=== PATIENT | female | born 2000 | race Two or more races ===

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

== ENCOUNTER 2019-03-11 00:59 | Emergency (ER) | payer MEDICAID ==
[2019-03-11 05:20] LABS: ABSOLUTE EOSINOPHILS # (AUTO) 0.1 10^3/uL (0.0-0.6); ABSOLUTE LYMPHOCYTES (AUTO) 2.6 10^3/uL (0.5-4.7); ABSOLUTE MONOCYTES (AUTO) 0.6 10^3/uL (0.1-1.4); ABSOLUTE NEUT (AUTO) 3.9 10^3/uL (1.7-8.2); BASOPHILS % (AUTO) 0.4 % (0-2); HEMATOCRIT 31.5 % (36.0-47.0); HEMOGLOBIN 10.4 g/dL (12.0-15.5); LYMPHOCYTES % (AUTO) 35.9 % (13-45); MEAN CORPUSCULAR HEMOGLOBIN 24.8 pg (27.0-33.4); MEAN CORPUSCULAR HGB CONC 33.1 g/dL (32.0-36.0); MEAN CORPUSCULAR VOLUME 75 fl (80-97); PLATELET COUNT 167 10^3/uL (150-450); RED BLOOD COUNT 4.21 10^6/uL (3.72-5.28); RED CELL DISTRIBUTION WIDTH 21.4 % (11.5-14.0); SEGMENTED NEUTROPHILS % (AUTO) 54.7 % (42-78); TOTAL CELLS COUNTED % (AUTO) 100 %; WHITE BLOOD COUNT 7.2 10^3/uL (4.0-10.5)
[2019-03-11 05:32] LABS: APPEARANCE,URINE CLEAR; BILIRUBIN,URINE NEGATIVE (NEGATIVE); COLOR,URINE YELLOW; GLUCOSE, URINE NEGATIVE (NEGATIVE); KETONES,URINE NEGATIVE (NEGATIVE); LEUKOCYTE ESTERASE,URINE NEGATIVE (NEGATIVE); NITRITE,URINE NEGATIVE (NEGATIVE); PROTEIN,URINE NEGATIVE (NEGATIVE)
[2019-03-11 05:45] LABS: ALANINE AMINOTRANSFERASE 22 U/L (5-35); ALBUMIN 3.8 g/dL (3.7-5.6); ALKALINE PHOSPHATASE 72 U/L (50-135); ANION GAP 8 (5-19); ASPARTATE AMINO TRANSFERASE 22 U/L (5-30); BILIRUBIN,DIRECT 0.2 mg/dL (0.0-0.4); BILIRUBIN,TOTAL 0.3 mg/dL (0.2-1.3); BLOOD UREA NITROGEN 13 mg/dL (7-20); CALCIUM 8.9 mg/dL (8.4-10.2); CARBON DIOXIDE 24 mmol/L (22-30); CHLORIDE 105 mmol/L (98-107); LIPASE 183.5 U/L (23-300); SODIUM 136.9 mmol/L (137-145)
[2019-03-11 06:05] LABS: GLUCOSE 68 mg/dL (75-110)
--- NOTE | 2019-03-11 06:16 | ER Document Report ---
ED GI/ - General Chief Complaint: OB Problem (<20wks) Stated Complaint: BACK AND STOMACH PAIN Time Seen by Provider: 03/11/19 03:31 Primary Care Provider: [facility] [Provider Group] - Follow up as needed Mode of Arrival: Ambulatory Information source: Patient Notes: Patient is a 18-year-old female who is a G1, P0 presenting to the emergency department at 12 weeks gestation complaining of lower abdominal cramping over the last 3 days. She denies any vaginal bleeding, denies any abnormal vaginal discharge and denies any nausea, vomiting, diarrhea or fevers. Patient reports this cramping comes and goes. TRAVEL OUTSIDE OF THE [place] IN LAST 30 DAYS: No - HPI heart tones (bpm): 155 - Related Data Allergies/Adverse Reactions: No Known Allergies Allergy (Verified 12/13/18 13:06) Past Medical History - General Information source: Patient - Social History Smoking Status: Never Smoker Chew tobacco use (# tins/day): No Frequency of alcohol use: None Drug Abuse: None Family History: Reviewed & Not Pertinent Patient has suicidal ideation: No Patient has homicidal ideation: No - Medical History Medical History: Negative Renal/ Medical History: Denies: Hx Peritoneal Dialysis Past Surgical History: Reports: Hx Gastric Bypass Surgery - Immunizations Immunizations up to date: Yes Hx Diphtheria, Pertussis, Tetanus Vaccination: Yes Review of Systems - Review of Systems Constitutional: No symptoms reported EENT: No symptoms reported Cardiovascular: No symptoms reported Respiratory: No symptoms reported Gastrointestinal: Abdominal pain - Cramping Genitourinary: No symptoms reported Female Genitourinary: No symptoms reported Musculoskeletal: No symptoms reported Skin: No symptoms reported Hematologic/Lymphatic: No symptoms reported Neurological/Psychological: No symptoms reported Physical Exam - Vital signs Vitals: Temp Pulse Resp BP Pulse Ox 97.8 F 70 16 121/57 L 100 03/11/19 01:06 03/11/19 01:06 03/11/19 01:06 03/11/19 01:06 03/11/19 01:06 - Notes Notes: PHYSICAL EXAMINATION: GENERAL: Well-appearing, well-nourished and in no acute distress. HEAD: Atraumatic, normocephalic. EYES: Pupils equal round and reactive to light, extraocular movements intact, conjunctiva are normal. ENT: Nares patent, oropharynx clear without exudates. Moist mucous membranes. NECK: Normal range of motion, supple without lymphadenopathy LUNGS: Breath sounds clear to auscultation bilaterally and equal. No wheezes rales or rhonchi. HEART: Regular rate and rhythm without murmurs ABDOMEN: Soft, nontender, nondistended abdomen. No guarding, no rebound. No masses appreciated. Female : deferred Musculoskeletal: Normal range of motion, no pitting or edema. No cyanosis. NEUROLOGICAL: Cranial nerves grossly intact. Normal speech, normal gait. Normal sensory, motor exams PSYCH: Normal mood, normal affect. SKIN: Warm, Dry, normal turgor, no rashes or lesions noted. Course - Re-evaluation Re-evalutation: Labs as recorded are unremarkable. Patient already has a history of having an ultrasound that shows an intrauterine . heart tones are within acceptable range. Patient will be discharged home with likely round ligament pain. Patient understands all test results and understands ED return precautions. - Vital Signs Vital signs: Temp Pulse Resp BP Pulse Ox 97.7 F 67 16 113/42 L 100 03/11/19 06:44 03/11/19 06:44 03/11/19 06:44 03/11/19 06:44 03/11/19 06:44 - Laboratory Result Diagrams: 03/11/19 04:45 03/11/19 04:45 Laboratory results interpreted by me: 03/11/19 03/11/19 03/11/19 04:30 04:45 04:45 Hgb 10.4 L Hct 31.5 L MCV 75 L MCH 24.8 L RDW 21.4 H Sodium 136.9 L Creatinine 0.38 L Glucose 68 L Beta HCG, Quant 38182.00 H Urine Urobilinogen 4.0 H Urine Ascorbic Acid 40 H Discharge - Discharge Clinical Impression: Pain of round ligament during Condition: Stable Disposition: HOME, SELF-CARE Additional Instructions: Your lab work-up today was unremarkable. There is no evidence of any urinary tract infection. heart tones were obtained and were normal. The pain you are experiencing intermittently over the last few days is most likely being caused by a round ligament pain which is a part of . It is your ligaments stretching to allow for the growing abdomen. Please drink plenty of fluids, rest, take Tylenol for any pain. Follow-up with your [facility]NAGER. Return to the emergency department with any new or worsening symptoms to include persistent abdominal pain, persistent vomiting, fever or any other symptom that is concerning to you. Referrals: [facility] [Provider Group] - Follow up as needed
[2019-03-11 07:14] VITALS: BP 113/42
== END 2019-03-11 07:10 | disposition home or self-care (01) ==
LOC: ER 00:59
DX: O26.891 Other specified pregnancy related conditions, first trimester (principal); R10.2 Pelvic and perineal pain; O99.841 Bariatric surgery status complicating pregnancy, first trimester; Z3A.12 12 weeks gestation of pregnancy
CPT/HCPCS: 36415; 80053; 81001; 83690; 84702; 85025; 99284

== ENCOUNTER 2019-05-13 17:06 | Outpatient (CLI) | payer MEDICAID ==
[2019-05-13 18:09] LABS: APPEARANCE,URINE CLEAR; BILIRUBIN,URINE NEGATIVE (NEGATIVE); COLOR,URINE YELLOW; GLUCOSE, URINE NEGATIVE (NEGATIVE); KETONES,URINE NEGATIVE (NEGATIVE); LEUKOCYTE ESTERASE,URINE TRACE (NEGATIVE); NITRITE,URINE NEGATIVE (NEGATIVE); PROTEIN,URINE 30 mg/dL (NEGATIVE); URINE SPECIFIC GRAVITY 1.029
[2019-05-13] MEDS ORDERED: HYDROXYZINE PAMOATE 50 MG CAPSULE PO ONE (18:10)
[2019-05-13] MEDS ORDERED: HYDROXYZINE PAMOATE 50 MG CAPSULE ONE (18:13)
[2019-05-13 18:32] LABS: URINE AMPHETAMINES SCREEN NEGATIVE; URINE BARBITURATES SCREEN NEGATIVE; URINE BENZODIAZEPINES SCREEN NEGATIVE; URINE COCAINE SCREEN NEGATIVE; URINE MARIJUANA (THC) SCREEN NEGATIVE; URINE METHADONE SCREEN NEGATIVE; URINE PHENCYCLIDINE SCREEN NEGATIVE
== END 2019-05-13 18:48 | disposition home or self-care (01) ==
LOC: LC 17:06
PROVIDERS: ATTEND Obstetrics & Gynecology
PROC: 4A1HXCZ Monitoring of Products of Conception, Cardiac Rate, External Approach (ICD-10-PCS; principal; 2019-05-13)
DX: O26.892 Other specified pregnancy related conditions, second trimester (principal); E86.0 Dehydration; Z3A.21 21 weeks gestation of pregnancy
CPT/HCPCS: 81001; 80307; 59899; J3490

== ENCOUNTER 2019-06-18 07:41 | Emergency (ER) | payer MEDICAID ==
[2019-06-18 08:19] LABS: APPEARANCE,URINE SLIGHTLY-CLOUDY; BILIRUBIN,URINE NEGATIVE (NEGATIVE); COLOR,URINE YELLOW; GLUCOSE, URINE NEGATIVE (NEGATIVE); KETONES,URINE NEGATIVE (NEGATIVE); LEUKOCYTE ESTERASE,URINE NEGATIVE (NEGATIVE); NITRITE,URINE NEGATIVE (NEGATIVE); PROTEIN,URINE NEGATIVE (NEGATIVE)
--- NOTE | 2019-06-18 08:55 | ER Document Report ---
HPI - HPI Time Seen by Provider: 06/18/19 08:12 Pain Level: 3 Notes: Patient is an otherwise healthy 18-year-old female G1, P0 at 26 weeks current gestation presenting with diarrhea that started last night. Patient reports she has had 4 episodes of diarrhea. She states that her spouse has similar symptoms. She reports mild nausea but denies any vomiting, vaginal bleeding or abnormal vaginal discharge. She does report intermittent abdominal cramping. She denies any fever or chills. - CONSTITUTIONAL Constitutional: DENIES: Fever, Chills - GASTROINTESTINAL Gastrointestinal: REPORTS: Abdominal Pain - lower abdo. DENIES: Black / Bloody Stools - URINARY Urinary: DENIES: Dysuria, Urgency, Frequency - REPRODUCTIVE Reproductive: REPORTS: : Past Medical History - General Information source: Patient - Social History Smoking Status: Never Smoker Lives with: Spouse/Significant other Family History: Reviewed & Not Pertinent Patient has suicidal ideation: No Patient has homicidal ideation: No - Medical History Medical History: Negative Renal/ Medical History: Denies: Hx Peritoneal Dialysis Past Surgical History: Reports: Hx Abdominal Surgery - gastric bypass, Hx Gastric Bypass Surgery - Immunizations Immunizations up to date: Yes Hx Diphtheria, Pertussis, Tetanus Vaccination: Yes Vertical Provider Document - CONSTITUTIONAL Notes: PHYSICAL EXAMINATION: GENERAL: Well-appearing, well-nourished and in no acute distress. HEAD: Atraumatic, normocephalic. EYES: Pupils equal round and reactive to light, extraocular movements intact, conjunctiva are normal. ENT: Nares patent, oropharynx clear without exudates. Moist mucous membranes. NECK: Normal range of motion, supple without lymphadenopathy LUNGS: Breath sounds clear to auscultation bilaterally and equal. No wheezes rales or rhonchi. HEART: Regular rate and rhythm without murmurs ABDOMEN: Soft, nontender, nondistended, gravid abdomen. No guarding, no rebound. No masses appreciated. Female : No CVA tenderness. Musculoskeletal: Normal range of motion, no pitting or edema. No cyanosis. NEUROLOGICAL: Cranial nerves grossly intact. Normal speech, normal gait. Normal sensory, motor exams PSYCH: Normal mood, normal affect. SKIN: Warm, Dry, normal turgor, no rashes or lesions noted. - INFECTION CONTROL TRAVEL OUTSIDE OF THE [place] IN LAST 30 DAYS: No Course - Re-evaluation Re-evalutation: Urinalysis is unremarkable. Likely viral gastroenteritis as patient spouse has had similar symptoms. Patient appears well, nontoxic, vital signs are within normal limits. Patient will follow-up with C[facility] TRANSPORT NURSE. Encourage patient to push fluids. The patient's emergency department workup and current diagnosis were explained to the patient and or family. Follow-up instructions were provided. Medications if prescribed were discussed. Instructions for when to return to the emergency department including specific worrisome symptoms were discussed with the patient and/or family. - Vital Signs Vital signs: Temp Pulse Resp BP Pulse Ox 98.4 F 66 16 132/57 H 99 06/18/19 07:50 06/18/19 07:50 06/18/19 07:50 06/18/19 07:50 06/18/19 07:50 - Laboratory Laboratory results interpreted by me: 06/18/19 07:52 Urine Urobilinogen 2.0 H Urine HCG, Qual POSITIVE H Discharge - Discharge Clinical Impression: Nausea Diarrhea Qualifiers: Diarrhea type: unspecified type Qualified Code(s): R19.7 - Diarrhea, unspecified Condition: Stable Disposition: HOME, SELF-CARE Additional Instructions: The urinalysis today was unremarkable. Unfortunately there is no safe medication for me to recommend in for your diarrhea. Please allow this to run its course. Please stay hydrated and drink plenty of fluids. Please return to the emergency department with any new or worsening symptoms. Keep the follow-up appointment that you have scheduled with [facility]. Forms: Return to Work Referrals: DAVID NEWTON MD [Primary Care Provider] - Follow up as needed
[2019-06-18 09:17] VITALS: BP 113/58
== END 2019-06-18 09:19 | disposition home or self-care (01) ==
LOC: ER 07:41
DX: O26.892 Other specified pregnancy related conditions, second trimester (principal); R19.7 Diarrhea, unspecified; R10.30 Lower abdominal pain, unspecified; R11.0 Nausea; O99.842 Bariatric surgery status complicating pregnancy, second trimester; Z3A.26 26 weeks gestation of pregnancy
CPT/HCPCS: 81001; 81025; 87086; 99284

== ENCOUNTER 2019-07-11 13:05 | Outpatient (CLI) | payer MEDICAID ==
[2019-07-11 13:34] LABS: APPEARANCE,URINE SLIGHTLY-CLOUDY; BILIRUBIN,URINE NEGATIVE (NEGATIVE); GLUCOSE, URINE NEGATIVE (NEGATIVE); KETONES,URINE NEGATIVE (NEGATIVE); LEUKOCYTE ESTERASE,URINE SMALL (NEGATIVE); NITRITE,URINE NEGATIVE (NEGATIVE); PROTEIN,URINE NEGATIVE (NEGATIVE); URINE SPECIFIC GRAVITY 1.028
[2019-07-11 13:35] LABS: COLOR,URINE DARK YELLOW
[2019-07-11 13:58] LABS: URINE AMPHETAMINES SCREEN NEGATIVE; URINE BARBITURATES SCREEN NEGATIVE; URINE BENZODIAZEPINES SCREEN NEGATIVE; URINE COCAINE SCREEN NEGATIVE; URINE METHADONE SCREEN NEGATIVE; URINE PHENCYCLIDINE SCREEN NEGATIVE
[2019-07-11 14:02] LABS: URINE MARIJUANA (THC) SCREEN UNCONFIRMED POSITIVE
== END 2019-07-11 14:15 | disposition home or self-care (01) ==
LOC: LC 13:05
PROVIDERS: ATTEND Obstetrics & Gynecology
PROC: 4A1HXCZ Monitoring of Products of Conception, Cardiac Rate, External Approach (ICD-10-PCS; principal; 2019-07-11)
DX: O47.03 False labor before 37 completed weeks of gestation, third trimester (principal); O36.8130 Decreased fetal movements, third trimester, not applicable or unspecified; Z3A.29 29 weeks gestation of pregnancy
CPT/HCPCS: 59899; 94760; 81001; 80307; G0480 ×2; 80349

== ENCOUNTER 2019-08-13 04:57 | Emergency (ER) | payer MEDICAID ==
[2019-08-13 08:25] LABS: A TYPE INFLUENZA AG NEGATIVE (NEGATIVE); B INFLUENZA AG NEGATIVE (NEGATIVE)
[2019-08-13 09:20] VITALS: BP 93/49
--- NOTE | 2019-08-13 13:50 | ER Document Report ---
Entered by SHIRLENE ROSALES SCRIBE 08/13/19 0846 Acting as scribe for:WALLACE DRIVER DO ED General - General Chief Complaint: Cold Symptoms Stated Complaint: COLD SYMPTOMS Time Seen by Provider: 08/13/19 07:35 Mode of Arrival: Ambulatory Information source: Patient Notes: This 19-year old 34-week female patient presents to the emergency department today with complaints of shortness of breath with an associated cough and wheezing for the last few days. Patient states that she has noticed that the shortness of breath and cough only really become bad at night when she is laying down to sleep. Patient denies fevers, chest pain, abdominal pain, or vaginal bleeding. TRAVEL OUTSIDE OF THE [place] IN LAST 30 DAYS: No - Related Data Allergies/Adverse Reactions: No Known Allergies Allergy (Verified 07/11/19 13:13) Home Medications: . iron Past Medical History - General Information source: Patient - Social History Smoking Status: Never Smoker Cigarette use (# per day): No Chew tobacco use (# tins/day): No Frequency of alcohol use: None Drug Abuse: None Lives with: Family Family History: Reviewed & Not Pertinent Patient has suicidal ideation: No Patient has homicidal ideation: No Past Surgical History: Reports: Hx Abdominal Surgery - gastric bypass, Hx Gastric Bypass Surgery - Immunizations Immunizations up to date: Yes Hx Diphtheria, Pertussis, Tetanus Vaccination: Yes Review of Systems - Review of Systems Constitutional: denies: Fever EENT: No symptoms reported Cardiovascular: No symptoms reported Respiratory: See HPI, Cough, Short of breath, Wheezing Gastrointestinal: No symptoms reported Genitourinary: No symptoms reported Female Genitourinary: See HPI, - 3rd trimester Musculoskeletal: No symptoms reported Skin: No symptoms reported Hematologic/Lymphatic: No symptoms reported Neurological/Psychological: No symptoms reported -: Yes All other systems reviewed and negative Physical Exam - Vital signs Vitals: Temp Pulse Resp BP Pulse Ox 97.7 F 77 14 126/66 H 99 08/13/19 05:03 08/13/19 05:03 08/13/19 05:03 08/13/19 05:03 08/13/19 05:03 Interpretation: Normal - General General appearance: Appears well, Alert - HEENT Head: Normocephalic, Atraumatic Eyes: Normal Pupils: PERRL Nasal: Other - congestoin Mucous membranes: Moist Pharynx: Normal. No: Blood in hypopharynx, Erythema, Exudate Neck: Normal - Respiratory Respiratory status: No respiratory distress Chest status: Nontender Breath sounds: Normal Chest palpation: Normal - Cardiovascular Rhythm: Regular Heart sounds: Normal auscultation Murmur: No - Abdominal Inspection: Normal, Gravid female Distension: No distension Bowel sounds: Normal Tenderness: Nontender Organomegaly: No organomegaly - Back Back: Normal, Nontender - Extremities General upper extremity: Normal inspection, Nontender, Normal color, Normal ROM, Normal temperature General lower extremity: Normal inspection, Nontender, Normal color, Normal ROM, Normal temperature, Normal weight bearing. No: Amanda's sign - Neurological Neuro grossly intact: Yes Cognition: Normal Orientation: AAOx4 [place] Coma Scale Eye Opening: Spontaneous [place] Coma Scale Verbal: Oriented [place] Coma Scale Motor: Obeys Commands [place] Coma Scale Total: 15 Speech: Normal Motor strength normal: LUE, RUE, LLE, RLE Sensory: Normal - Psychological Associated symptoms: Normal affect, Normal mood - Skin Skin Temperature: Warm Skin Moisture: Dry Skin Color: Normal Course - Re-evaluation Re-evalutation: 08/13/19 Patient is a 19-year-old female who is and comes in with upper respiratory infection symptoms. Flu swab is negative and patient has not had a fever. No indication for Tamiflu at this time. Otherwise appears well. Has more coughing at night likely due to nasal congestion and postnasal drip. Instructed to take Benadryl and Tylenol as needed. heart tones within normal limits. No concerns about at this time stable for discharge. Return if any worsening or concerning symptoms. - Vital Signs Vital signs: Temp Pulse Resp BP Pulse Ox 98.5 F 65 18 93/49 L 97 08/13/19 09:15 08/13/19 09:15 08/13/19 09:15 08/13/19 09:15 08/13/19 09:15 Discharge - Discharge Clinical Impression: Upper respiratory infection Qualifiers: URI type: unspecified URI Qualified Code(s): J06.9 - Acute upper respiratory infection, unspecified Qualifiers: Weeks of gestation: 34 weeks Qualified Code(s): Z3A.34 - 34 weeks gestation of Condition: Stable Disposition: HOME, SELF-CARE Instructions: Upper Respiratory Illness ([facility]) Forms: Return to Work I personally performed the services described in the documentation, reviewed and edited the documentation which was dictated to the scribe in my presence, and it accurately records my words and actions.
== END 2019-08-13 09:19 | disposition home or self-care (01) ==
LOC: ER 04:57
DX: O99.513 Diseases of the respiratory system complicating pregnancy, third trimester (principal); J06.9 Acute upper respiratory infection, unspecified; O26.893 Other specified pregnancy related conditions, third trimester; R06.02 Shortness of breath; R05 Cough; R06.2 Wheezing; R09.81 Nasal congestion; R09.82 Postnasal drip; Z3A.34 34 weeks gestation of pregnancy; Z79.899 Other long term (current) drug therapy
CPT/HCPCS: 87804; 99283

== ENCOUNTER 2019-08-16 18:39 | Outpatient (CLI) | payer MEDICAID ==
[2019-08-16 20:51] LABS: APPEARANCE,URINE SLIGHTLY-CLOUDY; BILIRUBIN,URINE SMALL (NEGATIVE); COLOR,URINE AMBER; GLUCOSE, URINE NEGATIVE (NEGATIVE); KETONES,URINE NEGATIVE (NEGATIVE); LEUKOCYTE ESTERASE,URINE MODERATE (NEGATIVE); NITRITE,URINE NEGATIVE (NEGATIVE); PROTEIN,URINE 30 mg/dL (NEGATIVE); URINE SPECIFIC GRAVITY 1.038
--- NOTE | 2019-08-16 21:01 | Non Stress Test Report ---
Non Stress Test Datetime Report Generated by CPN: 08/16/2019 21:00 DEMOGRAPHIC EGA NST: 34.6 INDICATION Indication for Study (NST) Other: LC- abdominal cramping MONITORING Monitor Explained: Monitor Explained; Test Explained; Patient Verbalized Understanding Time on Monitor: 08/16/2019 19:09 NST INTERVENTIONS NST Interventions: PO Hydration; Reposition Patient Physician Notified NST: Dr. Younger BABY A: [id number] BABY A Movement : Present Contraction Frequency : x3 FHR Baseline : 120 Accelerations : 15X15 Decelerations : None Variability : Moderate 6-25bpm NST Review: Meets Criteria for Reactive NST NST Review and Verified By : JNienaveed,RN NST Results: Reactive NST REPORT Report Trigger: Send Report
[2019-08-16 21:05] LABS: URINE AMPHETAMINES SCREEN NEGATIVE; URINE BARBITURATES SCREEN NEGATIVE; URINE BENZODIAZEPINES SCREEN NEGATIVE; URINE COCAINE SCREEN NEGATIVE; URINE MARIJUANA (THC) SCREEN NEGATIVE; URINE METHADONE SCREEN NEGATIVE; URINE PHENCYCLIDINE SCREEN NEGATIVE
== END 2019-08-16 21:00 | disposition home or self-care (01) ==
LOC: LC 18:39
PROVIDERS: ATTEND Obstetrics & Gynecology
PROC: 4A1HXCZ Monitoring of Products of Conception, Cardiac Rate, External Approach (ICD-10-PCS; principal; 2019-08-16)
DX: O26.893 Other specified pregnancy related conditions, third trimester (principal); Z3A.34 34 weeks gestation of pregnancy
CPT/HCPCS: 59025; 80307; 81001

== ENCOUNTER 2019-08-17 00:45 | Inpatient (IN) | payer MEDICAID ==
[2019-08-17 01:31] LABS: APPEARANCE,URINE SLIGHTLY-CLOUDY; BILIRUBIN,URINE NEGATIVE (NEGATIVE); COLOR,URINE YELLOW; GLUCOSE, URINE NEGATIVE (NEGATIVE); KETONES,URINE NEGATIVE (NEGATIVE); LEUKOCYTE ESTERASE,URINE MODERATE (NEGATIVE); NITRITE,URINE NEGATIVE (NEGATIVE); PROTEIN,URINE 30 mg/dL (NEGATIVE); URINE SPECIFIC GRAVITY 1.018
[2019-08-17 01:48] LABS: URINE AMPHETAMINES SCREEN NEGATIVE; URINE BARBITURATES SCREEN NEGATIVE; URINE BENZODIAZEPINES SCREEN NEGATIVE; URINE COCAINE SCREEN NEGATIVE; URINE MARIJUANA (THC) SCREEN NEGATIVE; URINE METHADONE SCREEN NEGATIVE; URINE PHENCYCLIDINE SCREEN NEGATIVE
[2019-08-17] MEDS ORDERED: PENICILLIN G-K 5 MILLION UNIT VIAL ONE ×4 (02:01→13:55)
[2019-08-17] MEDS ORDERED: RINGERS SOLUTION,LACTATED 1,000 ML IV PRN (02:02)
[2019-08-17] MEDS ORDERED: PENICILLIN G POTASSIUM 5,000,000 UNIT in DEXTROSE 5%-WATER 100 ML IV ONE (02:02)
[2019-08-17] MEDS ORDERED: BETAMET ACET/BETAMET NA INJ 6 MG/1 ML IM ONE (02:03)
[2019-08-17] MEDS ORDERED: BETAMET ACET/BETAMET NA INJ 6 MG/1 ML ONE ×3 (02:04→13:54)
[2019-08-17 02:36] LABS: ABSOLUTE BASOPHILS # (AUTO) 0.1 10^3/uL (0.0-0.2); ABSOLUTE EOSINOPHILS # (AUTO) 0.1 10^3/uL (0.0-0.6); ABSOLUTE LYMPHOCYTES (AUTO) 2.3 10^3/uL (0.5-4.7); ABSOLUTE MONOCYTES (AUTO) 0.7 10^3/uL (0.1-1.4); ABSOLUTE NEUT (AUTO) 7.4 10^3/uL (1.7-8.2); BASOPHILS % (AUTO) 0.6 % (0-2); EOSINOPHILS % (AUTO) 0.5 % (0-6); HEMATOCRIT 27.8 % (36.0-47.0); HEMOGLOBIN 9.5 g/dL (12.0-15.5); LYMPHOCYTES % (AUTO) 21.8 % (13-45); MEAN CORPUSCULAR HEMOGLOBIN 26.4 pg (27.0-33.4); MEAN CORPUSCULAR HGB CONC 34.2 g/dL (32.0-36.0); MEAN CORPUSCULAR VOLUME 77 fl (80-97); MONOCYTES % (AUTO) 6.7 % (3-13); PLATELET COUNT 230 10^3/uL (150-450); RED CELL DISTRIBUTION WIDTH 16.1 % (11.5-14.0); SEGMENTED NEUTROPHILS % (AUTO) 70.4 % (42-78); TOTAL CELLS COUNTED % (AUTO) 100 %; WHITE BLOOD COUNT 10.5 10^3/uL (4.0-10.5)
[2019-08-17] MEDS ORDERED: OXYTOCIN 10 UNIT/ML VIAL ONE (02:39)
[2019-08-17] MEDS ORDERED: MISOPROSTOL 0.2 MG TABLET ONE (02:39)
[2019-08-17] MEDS ORDERED: OXYTOCIN/NORMAL SALINE 20 UNIT/1,000 ML RTUINJ ONE ×2 (02:39→09:49)
[2019-08-17] MEDS ORDERED: LIDOCAINE 1% INJ-PF (10 MG/ML) 30 ML SDV ONE (02:39)
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
[2019-08-17] MEDS: PENICILLIN G POTASSIUM 2,500,000 UNIT in DEXTROSE 5%-WATER 50 ML IV SCH ×3 (05:41→14:22)
[2019-08-17 08:37] LABS: CHLAM PCR NOT DETECTED (NOT DETECT)
[2019-08-17] MEDS ORDERED: HYDROXYZINE PAMOATE 50 MG CAPSULE PO ONE (08:50)
[2019-08-17] MEDS ORDERED: HYDROXYZINE PAMOATE 50 MG CAPSULE ONE (09:23)
[2019-08-17] MEDS ORDERED: OXYTOCIN/NORMAL SALINE 20 UNIT/1,000 ML RTUINJ IV PRN ×2 (10:16→14:45)
[2019-08-17] MEDS ORDERED: EPHEDRINE SULFATE INJ 50 MG/1 ML AMPULE ONE (12:56)
[2019-08-17] MEDS ORDERED: PHENYLEPHRINE HCL INJ/PF 10 MG/1 ML SDV ONE (12:56)
[2019-08-17] MEDS ORDERED: FENTANYL CITRATE INJ/PF 100 MCG/2 ML AMPUL ONE (12:56)
[2019-08-17] MEDS ORDERED: FENTANYL/BUPIVACAINE/NS/PF 300 MCG/150 ML RTUINJ EPI ONE (12:56)
[2019-08-17] MEDS ORDERED: BUPIVACAINE HCL 0.25 % INJ/PF (2.5 MG/1 ML) 30 ML VIAL ONE (12:56)
[2019-08-17] MEDS ORDERED: METHYLERGONOVINE MALEATE INJ/PF 0.2 MG/1 ML AMPULE ONE (14:09)
[2019-08-17] MEDS ORDERED: GENTAMICIN SULFATE INJ 80 MG/2 ML VIAL IM ONE (14:15)
[2019-08-17] MEDS ORDERED: ACETAMINOPHEN 325 MG TABLET ONE (14:24)
[2019-08-17] MEDS ORDERED: IBUPROFEN 800 MG TABLET ONE ×2 (14:24→23:15)
[2019-08-17] MEDS ORDERED: ACETAMINOPHEN 325 MG TABLET PO ONE (14:25)
[2019-08-17] MEDS ORDERED: IBUPROFEN 800 MG TABLET PO ONE ×2 (14:26→23:45)
[2019-08-17] MEDS ORDERED: ACETAMINOPHEN WITH CODEINE #3 TABLET PO PRN (14:45)
[2019-08-17] MEDS ORDERED: DIBUCAINE 1% OINTMENT 28 GM TP PRN (14:45)
[2019-08-17] MEDS ORDERED: MEASLES,MUMPS&RUBELLA VACC/PF 0.5 ML VIAL SUBCUT PRN (14:45)
[2019-08-17] MEDS ORDERED: ZOLPIDEM TARTRATE 5 MG TABLET PO PRN (14:45)
[2019-08-17] MEDS ORDERED: DIPH/PERTUSS(ACELL)/TETANUS VAC/PF 0.5 ML SYR (>=10YO) IM PRN (14:45)
[2019-08-17] MEDS ORDERED: BENZOCAINE/MENTHOL AEROSOL SPRAY 56 ML TOP PRN (14:45)
[2019-08-17] MEDS ORDERED: INFLUENZA QUAD (6MOS+) 2019-20 VAC 0.5 ML SYR IM ONE (17:18)
[2019-08-17] MEDS ORDERED: AMPICILLIN SOD INJ 2 GM VIAL IV SCH ×2 (18:00)
[2019-08-17] MEDS ORDERED: AMPICILLIN SOD INJ 2 GM VIAL IM SCH (18:00)
[2019-08-17] MEDS: DOCUSATE SODIUM 100 MG CAPSULE PO SCH (19:37)
[2019-08-17] MEDS: FERROUS SULFATE 325 MG TABLET PO SCH (19:37)
[2019-08-17] MEDS: AMPICILLIN SODIUM 2 GM in NORMAL SALINE 100 ML IV SCH ×2 (19:38→23:51)
[2019-08-17] MEDS: GENTAMICIN SULFATE 110 MG in DEXTROSE 5%-WATER 100 ML IV SCH (21:31)
[2019-08-17] MEDS ORDERED: GENTAMICIN SULFATE INJ 80 MG/2 ML VIAL IV SCH ×2 (22:00)
[2019-08-17] MEDS ORDERED: GENTAMICIN SULFATE INJ 80 MG/2 ML VIAL IM SCH (22:00)
[2019-08-18] MEDS: IBUPROFEN 800 MG TABLET PO SCH ×3 (05:24→21:26)
[2019-08-18] MEDS: AMPICILLIN SODIUM 2 GM in NORMAL SALINE 100 ML IV SCH ×3 (05:25→18:40)
[2019-08-18] MEDS: GENTAMICIN SULFATE 110 MG in DEXTROSE 5%-WATER 100 ML IV SCH ×2 (06:26→15:10)
[2019-08-18 07:22] LABS: HEMATOCRIT 26.4 % (36.0-47.0); HEMOGLOBIN 8.7 g/dL (12.0-15.5); MEAN CORPUSCULAR HEMOGLOBIN 25.4 pg (27.0-33.4); MEAN CORPUSCULAR HGB CONC 32.8 g/dL (32.0-36.0); MEAN CORPUSCULAR VOLUME 77 fl (80-97); PLATELET COUNT 177 10^3/uL (150-450); RED BLOOD COUNT 3.42 10^6/uL (3.72-5.28); RED CELL DISTRIBUTION WIDTH 16.5 % (11.5-14.0); WHITE BLOOD COUNT 19.9 10^3/uL (4.0-10.5)
[2019-08-18] MEDS: DOCUSATE SODIUM 100 MG CAPSULE PO SCH ×2 (09:30→18:40)
[2019-08-18] MEDS: FERROUS SULFATE 325 MG TABLET PO SCH ×2 (09:30→18:40)
[2019-08-18] MEDS: SENNOSIDES/DOCUSATE 8.6-50 MG 1 EACH TABLET PO SCH (09:30)
[2019-08-18] MEDS: PRENATAL VITAMIN W DHA CAPSULE PO SCH (09:30)
--- NOTE | 2019-08-18 11:40 | PDOC PROGRESS REPORT ---
Subjective-OB Progress Note for:: 08/18/19 - PP Day #1, doing well, , Pt is on Antibiotics for chorio, she has been afebrile today, will d/c antibiotics this evening. O+, rubella immune, Physical Exam (OB) Vital Signs: Temp Pulse Resp BP Pulse Ox 97.5 F 91 18 102/51 L 100 08/18/19 08:00 08/18/19 08:00 08/18/19 08:00 08/18/19 08:00 08/18/19 08:00 Intake & Output 08/17/19 08/18/19 08/19/19 06:59 06:59 06:59 Intake Total 852.75 Balance 852.75 Weight 91 kg - General General Appearance: Appears well, Alert In distress: None - PIH/Pre-Eclampsia Epigastric Pain: No Visual Changes: No - Lochia Lochia Amount: Scant < 10 ml Lochia Color: Rubra/Red - Abdomen Description: Soft Hernia Present: No Fundal Description: Firm, Midline Fundal Height: u/u - u/2 - Respiratory Respiratory Status: No respiratory distress - Abdominal Distension: No distension Tenderness: Nontender - Genitourinary Genitourinary Note: voiding - Extremities Upper extremity: Normal inspection Lower extremities: Normal inspection Objective-Diagnostic Laboratory: 08/18/19 06:48 08/18/19 06:48 WBC 19.9 H RBC 3.42 L Hgb 8.7 L Hct 26.4 L MCV 77 L MCH 25.4 L MCHC 32.8 RDW 16.5 H Plt Count 177 Assessment and Plan(PN) - Assessment and Plan (1) 35 weeks gestation of Is this a current diagnosis for this admission?: Yes (2) Anemia Qualifiers: Anemia type: iron deficiency Is this a current diagnosis for this admission?: Yes (3) Chorioamnionitis, delivered, current hospitalization Is this a current diagnosis for this admission?: Yes (4) PROM with onset of labor within 24 hours of rupture Qualifiers: PROM gestational age: -third trimester Qualified Code(s): O42.013 - premature rupture of membranes, onset of labor within 24 hours of rupture, third trimester Is this a current diagnosis for this admission?: Yes (5) Qualifiers: Weeks of gestation: 35 weeks Qualified Code(s): Z3A.35 - 35 weeks gestation of Is this a current diagnosis for this admission?: Yes Plan:: Ambulation encouraged, Continue Amp and Gent until tonight, Routine PP orders, fever precautions - Time Spent with Patient Time with patient: Less than 15 minutes Medications reviewed and adjusted accordingly: Yes - Disposition Anticipated Discharge: Home Within: within 48 hours
[2019-08-19] MEDS: IBUPROFEN 800 MG TABLET PO SCH ×2 (05:25→18:31)
[2019-08-19] MEDS: SENNOSIDES/DOCUSATE 8.6-50 MG 1 EACH TABLET PO SCH (10:18)
[2019-08-19] MEDS: FERROUS SULFATE 325 MG TABLET PO SCH (10:18)
[2019-08-19] MEDS: PRENATAL VITAMIN W DHA CAPSULE PO SCH (10:18)
[2019-08-19] MEDS: DOCUSATE SODIUM 100 MG CAPSULE PO SCH (10:18)
--- NOTE | 2019-08-19 10:32 | PDOC DISCHARGE SUMMARY ---
Impression - Admit/DC Date/PCP Admission Date/Primary Care Provider: 08/17/19 01:26 Discharge Date: 08/19/19 - PP Day #2, doing well, denies fever, s/p Antibiotics x 24 hours due to chorio at delivery. PROM at 35 wks, baby remains in the NICU. O+. Rubella Immune , AF for over 24 hours now. - Discharge Diagnosis (1) 35 weeks gestation of Is this a current diagnosis for this admission?: Yes (2) Anemia Is this a current diagnosis for this admission?: Yes (3) Chorioamnionitis, delivered, current hospitalization Is this a current diagnosis for this admission?: Yes (4) PROM with onset of labor within 24 hours of rupture Is this a current diagnosis for this admission?: Yes (5) Is this a current diagnosis for this admission?: Yes - Additional Information Resuscitation Status: Full Code Discharge Diet: As Tolerated, Regular Discharge Activity: Activity As Tolerated, No Lifting Over 10 Pounds, Pelvic Rest Prescriptions: Ferrous Sulfate [Feosol 325 mg Tablet] 325 mg PO BID #60 tablet Ibuprofen [Motrin 800 mg Tablet] 800 mg PO Q8 #30 tablet Home Medications: Ferrous Sulfate [Feosol 325 mg Tablet] 325 mg PO BID #60 tablet 08/19/19 Ibuprofen [Motrin 800 mg Tablet] 800 mg PO Q8 #30 tablet 08/19/19 Vit/Dha [ Multi + Dha Capsule] 1 cap PO DAILY capsule 08/19/19 HPI Reason(s) for Admission: Onset of Labor Admission Note: PROM at 35 wks Procedures: Ultrasound Intrapartum Procedure(s): Spontaneous Vaginal Delivery Complication(s): Laceration-Periurethral Laceration-Degree: 1st Hospital Course Hospital Course: routine PP course Results Laboratory Results: WBC 19.9 10^3/uL (4.0-10.5) H 08/18/19 06:48 RBC 3.42 10^6/uL (3.72-5.28) L 08/18/19 06:48 Hgb 8.7 g/dL (12.0-15.5) L 08/18/19 06:48 Hct 26.4 % (36.0-47.0) L 08/18/19 06:48 MCV 77 fl (80-97) L 08/18/19 06:48 MCH 25.4 pg (27.0-33.4) L 08/18/19 06:48 MCHC 32.8 g/dL (32.0-36.0) 08/18/19 06:48 RDW 16.5 % (11.5-14.0) H 08/18/19 06:48 Plt Count 177 10^3/uL (150-450) 08/18/19 06:48 Lymph % (Auto) 21.8 % (13-45) 08/17/19 02:14 [place] % (Auto) 6.7 % (3-13) 08/17/19 02:14 Eos % (Auto) 0.5 % (0-6) 08/17/19 02:14 Baso % (Auto) 0.6 % (0-2) 08/17/19 02:14 Absolute Neuts (auto) 7.4 10^3/uL (1.7-8.2) 08/17/19 02:14 Absolute Lymphs (auto) 2.3 10^3/uL (0.5-4.7) 08/17/19 02:14 Absolute Monos (auto) 0.7 10^3/uL (0.1-1.4) 08/17/19 02:14 Absolute Eos (auto) 0.1 10^3/uL (0.0-0.6) 08/17/19 02:14 Absolute Basos (auto) 0.1 10^3/uL (0.0-0.2) 08/17/19 02:14 Seg Neutrophils % 70.4 % (42-78) 08/17/19 02:14 Urine Color YELLOW 08/17/19 00:55 Urine Appearance SLIGHTLY-CLOUDY 08/17/19 00:55 Urine pH 6.0 (5.0-9.0) 08/17/19 00:55 Ur Specific [place] 1.018 08/17/19 00:55 Urine Protein 30 mg/dL (NEGATIVE) H 08/17/19 00:55 Urine Glucose (UA) NEGATIVE mg/dL (NEGATIVE) 08/17/19 00:55 Urine Ketones NEGATIVE mg/dL (NEGATIVE) 08/17/19 00:55 Urine Blood SMALL (NEGATIVE) H 08/17/19 00:55 Urine Nitrite NEGATIVE (NEGATIVE) 08/17/19 00:55 Urine Bilirubin NEGATIVE (NEGATIVE) 08/17/19 00:55 Urine Urobilinogen 4.0 mg/dL (<2.0) H 08/17/19 00:55 Ur Leukocyte Esterase MODERATE (NEGATIVE) H 08/17/19 00:55 Urine WBC (Auto) 40 /HPF 08/17/19 00:55 Urine RBC (Auto) 8 /HPF 08/17/19 00:55 U Hyaline Cast (Auto) 1 /LPF 08/17/19 00:55 Squamous Epi Cells Auto 10 /HPF 08/17/19 00:55 Urine Mucus (Auto) OCC /LPF 08/17/19 00:55 Urine Ascorbic Acid NEGATIVE (NEGATIVE) 08/17/19 00:55 Membranes Rupture POSITIVE (NEGATIVE) H 08/17/19 00:55 Urine Opiates Screen NEGATIVE 08/17/19 00:55 Urine Methadone Screen NEGATIVE 08/17/19 00:55 Ur Barbiturates Screen NEGATIVE 08/17/19 00:55 Ur Phencyclidine Scrn NEGATIVE 08/17/19 00:55 Ur Amphetamines Screen NEGATIVE 08/17/19 00:55 U Benzodiazepines Scrn NEGATIVE 08/17/19 00:55 Urine Cocaine Screen NEGATIVE 08/17/19 00:55 U Marijuana (THC) Screen NEGATIVE 08/17/19 00:55 RPR NONREACTIVE (NONREACTIVE) 08/17/19 02:14 Chlamydia DNA (PCR) NOT DETECTED (NOT DETECT) 08/17/19 01:30 N.gonorrhoeae DNA (PCR) NOT DETECTED (NOT DETECT) 08/17/19 01:30 Blood Type O POSITIVE 08/17/19 02:14 Antibody Screen NEGATIVE 08/17/19 02:14 Plan Health Concerns: watch for fever, iron rich foods encouraged Plan of Treatment: d/c home, f/u with [facility] in 4 wks
[2019-08-19 13:59] VITALS: BP 103/44
--- NOTE | 2019-08-24 11:31 | Delivery Summary ---
Del Sum A-C Datetime Report Generated by CPN: 08/24/2019 11:30 DELIVERY PERSONNEL DELIVERY PERSONNEL: [id number] Delivery Doctor:: Roxie Jaquez CNM Nurse Caustic Room Operator Certified:: Roxie Jaquez CNM Labor and Delivery Nurse:: Cony Kelly RNheel top lift splitter Nurse:: Rosetta Dumont RN Nursery Nurse:: Vega Stone RN Manual Machinist/SWAHILI TEACHER: ST Jessie Manual Machinist/SWAHILI TEACHER: selene Mullins Additional Personnel: : Nelsy Osuna, RNC MATERNAL INFORMATION Delivery Anesthesia: Epidural Medications After Delivery: Pitocin Bolus-Please Comment; Methergine 0.2mg IM; Cytotec 200mcg Per Rectum/Vagina Meds After Delivery Comment: Pitocin 20 units in 1000 ml nss open for bolus, cytotec 200 mcg under tongue per provider order Delivery QBL: 200 Maternal Complications: Premature Rupture of Membranes; Chorioamnionitis; Maternal Fever Provider Comments: Epidural placed, pt laid back down and was noted to be C/+3. of VFI, placed on pts abdoman w/ Peds present for delivery. Maternal temp noted at delivery of 102.4, Cord clamped after one minute, cord blood obtained. Placenta S/C/I, IV Pitocin infusing, 200 mcg SL Cytotec given and IM Methergine given. Will send the placenta to path. Baby to go to NBN due to being 35 wks. Pt and baby girl in stable condition. 3 doses PCN infused prior to delivery. Apgars pending per Peds. QBL 200 ml. Attending MD is Dr Preciado LABOR SUMMARY EDC: 09/21/2019 00:00 No. Babies in Womb: 1 Attempted: No Labor Anesthesia: Epidural LABOR INFORMATION Reason for Induction: Not Applicable Onset of Labor: 08/17/2019 00:00 Complete Dilatation: 08/17/2019 13:57 Oxytocin: Augmentation Group B Beta Strep: 1 GROUP B BETA HEMOLYTIC STREPTOCOCCUS RECOVERED Group B Beta Strep: unknown Antibiotics # of Doses: 3 Steroids Given: Partial Course Reason Steroids Not Administered: Other Other Reason Not Administered: patient delivered fetus before 2nd dose MEMBRANES Membranes Rupture Method: Spontaneous Rupture of Membranes: 08/17/2019 00:00 Length of Rupture (hr): 14.00 Amniotic Fluid Color: Clear Amniotic Fluid Amount: Small Amniotic Fluid Odor: Normal STAGES OF LABOR Stage 1 hr: 13 Stage 1 min: 57 Stage 2 hr: 0 Stage 2 min: 3 Stage 3 hr: 0 Stage 3 min: 4 Total Time in Labor hr: 14 Total Time in Labor min: 4 VAGINAL DELIVERY Episiotomy: None Laceration #1: Periurethral Laceration Extension #1: N/A Laceration Repair: No Sponge Count Correct: Yes Sharps Count Correct: Yes CSECTION DELIVERY Primary Indication: N/A Secondary Indication: N/A CSection Incidence: N/A Labor: N/A Elective: N/A CSection Incision: N/A BABY A INFORMATION Delivery Date/Time: 08/17/2019 14:00 Method of Delivery: Vaginal Born in Route : No : N/A Forceps: N/A Vacuum Extraction: N/A Shoulder Dystocia : No PRESENTATION/POSITION BABY A Presentation: Cephalic Cephalic Presentation: Vertex Vertex Position: Left Occipital Anterior Breech Presentation: N/A PLACENTA INFORMATION BABY A Placenta Delivery Time : 08/17/2019 14:04 Placenta Method of Delivery: Spontaneous Placenta Status: Delivered SCORES BABY A Heart Rate 1 min: >100 bpm Resp Effort 1 min: Slow, Irregular Reflex Irritability 1 min: Cough or Sneeze or Pulls Away Muscle Tone 1 min: Some Flexion of Extremities Color 1 min: Blue/Pale Resuscitation Effort 1 min: Tactile Stimulation SCORE 1 MIN: 6 Heart Rate 5 min: >100 bpm Resp Effort 5 min: Good Cry Reflex Irritability 5 min: Cough or Sneeze or Pulls Away Muscle Tone 5 min: Active Motion Color 5 min: Blue/Pale Resuscitation Effort 5 min: Tactile Stimulation SCORE 5 MIN: 8 Heart Rate 10 min: >100 bpm Resp Effort 10 min: Good Cry Reflex Irritability 10 min: Cough or Sneeze or Pulls Away Muscle Tone 10 min: Active Motion Color 10 min: Body [place], Extremities Blue Resuscitation Effort 10 min: Tactile Stimulation SCORE 10 MIN: 9 INFORMATION BABY A Gestational Age at Delivery: 35.0 Gestational Status: Late - 34- 36.6 Weeks Outcome : Liveborn Condition : Stable Infant Sex: Female IDENTIFICATION BABY A Verification Date/Time: 08/17/2019 15:05 ID Band Number: [id number] Mother's Name Verified: Yes RN Verifying Infant: Chase RASHAWN Additional Verifying Personnel: Alaina Dumont RN WEIGHT/LENGTH BABY A Birthweight (gm): 2237 Weight (lb): 4 Weight (oz): 15 Infant Length (in): 18.50 Infant Length (cm): 46.99 CORD INFORMATION BABY A No. Cord Vessels: 3 Nuchal Cord : N/A Cord Blood Taken: Yes-For Eval (Mom's Blood Type - or O+) Infant Suction: None; Mouth ASSESSMENT BABY A Skin to Skin: Yes Skin to Skin Time (min): 15 BABY B INFORMATION : N/A SIGNATURES Assignment: Nichole Preciado MD Signature: with User ID: [email or web address] : with User ID: [email or web address]
== END 2019-08-19 17:34 | disposition home or self-care (01) | DRG 805 ==
LOC: LC 00:45 → LR 01:26 → 2S 14:52 → LR 15:39 → 2S 16:12
PROVIDERS: ADMIT Obstetrics & Gynecology; ATTEND Obstetrics & Gynecology
PROC: 10E0XZZ Delivery of Products of Conception, External Approach (ICD-10-PCS; principal; 2019-08-17)
PROC: 3E02340 Introduction of Influenza Vaccine into Muscle, Percutaneous Approach (ICD-10-PCS; 2019-08-19)
DX: O42.913 Preterm premature rupture of membranes, unspecified as to length of time between rupture and onset of labor, third trimester (principal); O41.1230 Chorioamnionitis, third trimester, not applicable or unspecified; Z37.0 Single live birth; O75.2 Pyrexia during labor, not elsewhere classified; Z62.810 Personal history of physical and sexual abuse in childhood; O99.02 Anemia complicating childbirth; D50.9 Iron deficiency anemia, unspecified; O71.82 Other specified trauma to perineum and vulva; Z3A.35 35 weeks gestation of pregnancy; Z98.84 Bariatric surgery status; Z87.891 Personal history of nicotine dependence; Z23 Encounter for immunization
CPT/HCPCS: 36415; 80307; 81001; 84112; 85025; 85027; 86592; 86850; 86900; 86901; 87077; 87081; 87491; 87591; 88307; 90686; 90715; 94760; J0290; J0702; J1580; J2210; J2370; J2540; J2590; J3010; J3490; J7050; J7060

== ENCOUNTER 2020-03-27 23:12 | Emergency (ER) | payer MEDICAID ==
[2020-03-27 23:18] VITALS: BP 131/66
== END 2020-03-28 00:55 | disposition admitted as inpatient to this hospital (09) ==
LOC: ER 23:12 → LR 03-28 00:58
DX: Z53.21 Procedure and treatment not carried out due to patient leaving prior to being seen by health care provider (principal); O9A.212 Injury, poisoning and certain other consequences of external causes complicating pregnancy, second trimester; Y09 Assault by unspecified means

== ENCOUNTER 2020-05-12 11:47 | Outpatient (CLI) | payer MEDICAID ==
[2020-05-12] MEDS ORDERED: BETAMET ACET/BETAMET NA INJ 6 MG/1 ML ONE (11:55)
[2020-05-12] MEDS ORDERED: BETAMET ACET/BETAMET NA INJ 6 MG/1 ML IM ONE (12:15)
[2020-05-12 12:24] LABS: APPEARANCE,URINE SLIGHTLY-CLOUDY; BILIRUBIN,URINE NEGATIVE (NEGATIVE); COLOR,URINE YELLOW; GLUCOSE, URINE NEGATIVE (NEGATIVE); KETONES,URINE NEGATIVE (NEGATIVE); LEUKOCYTE ESTERASE,URINE NEGATIVE (NEGATIVE); NITRITE,URINE NEGATIVE (NEGATIVE); PROTEIN,URINE 30 mg/dL (NEGATIVE)
[2020-05-12 12:38] LABS: URINE AMPHETAMINES SCREEN NEGATIVE; URINE BARBITURATES SCREEN NEGATIVE; URINE BENZODIAZEPINES SCREEN NEGATIVE; URINE COCAINE SCREEN NEGATIVE; URINE METHADONE SCREEN NEGATIVE; URINE PHENCYCLIDINE SCREEN NEGATIVE
[2020-05-12 12:42] LABS: URINE MARIJUANA (THC) SCREEN UNCONFIRMED POSITIVE
--- NOTE | 2020-05-12 13:00 | L&D Progress Notes ---
PROGRESS NOTES Datetime Report Generated by CPN: 05/12/2020 13:00 PROGRESS NOTE Comment: SG, 10.30, urine dark in color, no uc's, HR reassuring for GA, no c/o, receiving 1000c LR + TCH, pt states it has been awhile since she smoked TCH, no camping now Celestone 6mg x 1 Discussed PTL and symptoms to look out for, discussed not smoking TCH, risk to infant, she agrees MIL in room with pt SIGNATURE SIGNATURE: [id number] Assignment: Caron Machado MD Signature: with User ID: [email or web address] : with User ID: [email or web address]
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
[2020-05-12 13:48] LABS: EPITHELIALS (WET MOUNT) 3+ EPITHELIALS SEEN; T.VAGINALIS (WET MOUNT) NO TRICHOMONAS SEEN; WBCS (WET MOUNT) RARE WBCS SEEN; YEAST (WET MOUNT) NO YEAST SEEN
[2020-05-12 15:58] LABS: CHLAM PCR NOT DETECTED (NOT DETECT)
== END 2020-05-12 13:44 | disposition home or self-care (01) ==
LOC: LC 11:47
PROVIDERS: ATTEND Obstetrics & Gynecology
DX: O47.02 False labor before 37 completed weeks of gestation, second trimester (principal); Z3A.27 27 weeks gestation of pregnancy
CPT/HCPCS: 59899; 96372; 87210; 81001; 80307; 87491; 87591; J0702

== ENCOUNTER 2020-05-13 12:27 | Outpatient (CLI) | payer MEDICAID ==
[2020-05-13] MEDS ORDERED: BETAMET ACET/BETAMET NA INJ 6 MG/1 ML ONE (12:31)
[2020-05-13] MEDS ORDERED: BETAMET ACET/BETAMET NA INJ 6 MG/1 ML IM ONE (12:33)
== END 2020-05-13 12:38 | disposition home or self-care (01) ==
LOC: LC 12:27
PROVIDERS: ATTEND Obstetrics & Gynecology
DX: O47.02 False labor before 37 completed weeks of gestation, second trimester (principal); Z3A.27 27 weeks gestation of pregnancy
CPT/HCPCS: 59899; 96372; J0702

== ENCOUNTER 2020-07-13 07:58 | Inpatient (IN) | payer MEDICAID ==
[2020-07-13] MEDS ORDERED: RINGERS SOLUTION,LACTATED 1,000 ML IV PRN (08:44)
[2020-07-13] MEDS ORDERED: PENICILLIN G POTASSIUM 5,000,000 UNIT in DEXTROSE 5%-WATER 100 ML IV ONE (08:44)
[2020-07-13] MEDS ORDERED: RINGERS SOLUTION,LACTATED 1,000 ML IV ONE (08:44)
[2020-07-13] MEDS ORDERED: OXYTOCIN/0.9 % SODIUM CHLORIDE 30 UNIT/500 ML RTUINJ IV PRN ×3 (08:44→17:06)
[2020-07-13] MEDS ORDERED: MISOPROSTOL 0.2 MG TABLET ONE (08:48)
[2020-07-13] MEDS ORDERED: OXYTOCIN 10 UNIT/ML VIAL ONE (08:48)
[2020-07-13] MEDS ORDERED: LIDOCAINE 1% INJ-PF (10 MG/ML) 30 ML SDV ONE (08:49)
[2020-07-13] MEDS ORDERED: PENICILLIN G-K 5 MILLION UNIT VIAL ONE (08:49)
[2020-07-13] MEDS ORDERED: OXYTOCIN/0.9 % SODIUM CHLORIDE 30 UNIT/500 ML RTUINJ ONE (08:49)
[2020-07-13] MEDS ORDERED: BETAMET ACET/BETAMET NA INJ 6 MG/1 ML ONE (08:49)
[2020-07-13 08:52] LABS: RBCS (WET MOUNT) FEW RBCS SEEN; T.VAGINALIS (WET MOUNT) NO TRICHOMONAS SEEN; WBCS (WET MOUNT) 1+ WBCS SEEN; YEAST (WET MOUNT) NO YEAST SEEN
[2020-07-13 08:53] LABS: BACTERIA (WET MOUNT) 3+ BACTERIA SEEN
[2020-07-13 10:02] LABS: ABSOLUTE LYMPHOCYTES (AUTO) 1.9 10^3/uL (0.5-4.7); ABSOLUTE MONOCYTES (AUTO) 0.5 10^3/uL (0.1-1.4); ABSOLUTE NEUT (AUTO) 7.3 10^3/uL (1.7-8.2); BASOPHILS % (AUTO) 0.3 % (0-2); EOSINOPHILS % (AUTO) 0.2 % (0-6); HEMATOCRIT 28.3 % (36.0-47.0); HEMOGLOBIN 9.6 g/dL (12.0-15.5); LYMPHOCYTES % (AUTO) 19.3 % (13-45); MEAN CORPUSCULAR HEMOGLOBIN 27.3 pg (27.0-33.4); MEAN CORPUSCULAR HGB CONC 33.9 g/dL (32.0-36.0); MEAN CORPUSCULAR VOLUME 81 fl (80-97); MONOCYTES % (AUTO) 5.2 % (3-13); PLATELET COUNT 217 10^3/uL (150-450); RED BLOOD COUNT 3.51 10^6/uL (3.72-5.28); RED CELL DISTRIBUTION WIDTH 14.8 % (11.5-14.0); TOTAL CELLS COUNTED % (AUTO) 100 %; WHITE BLOOD COUNT 9.7 10^3/uL (4.0-10.5)
[2020-07-13 10:17] LABS: APPEARANCE,URINE SLIGHTLY-CLOUDY; BILIRUBIN,URINE NEGATIVE (NEGATIVE); COLOR,URINE YELLOW; GLUCOSE, URINE NEGATIVE (NEGATIVE); KETONES,URINE NEGATIVE (NEGATIVE); LEUKOCYTE ESTERASE,URINE TRACE (NEGATIVE); NITRITE,URINE NEGATIVE (NEGATIVE); PROTEIN,URINE NEGATIVE (NEGATIVE); URINE SPECIFIC GRAVITY 1.017
[2020-07-13 10:20] LABS: URINE AMPHETAMINES SCREEN NEGATIVE; URINE BARBITURATES SCREEN NEGATIVE; URINE BENZODIAZEPINES SCREEN NEGATIVE; URINE COCAINE SCREEN NEGATIVE; URINE MARIJUANA (THC) SCREEN NEGATIVE; URINE METHADONE SCREEN NEGATIVE; URINE PHENCYCLIDINE SCREEN NEGATIVE
[2020-07-13 11:30] LABS: CHLAM PCR NOT DETECTED (NOT DETECT)
[2020-07-13] MEDS: PENICILLIN G POTASSIUM 2,500,000 UNIT in DEXTROSE 5%-WATER 50 ML IV SCH ×2 (13:23→17:52)
[2020-07-13] MEDS ORDERED: PSEUDOEPHEDRINE HCL 30 MG TABLET PO PRN (17:06)
[2020-07-13] MEDS ORDERED: DIPHENHYDRAMINE HCL 25 MG CAPSULE PO PRN (17:06)
[2020-07-13] MEDS ORDERED: ZOLPIDEM TARTRATE 5 MG TABLET PO PRN (17:06)
[2020-07-13] MEDS ORDERED: BENZOCAINE/MENTHOL AEROSOL SPRAY 56 ML TOP PRN (17:06)
[2020-07-13] MEDS ORDERED: DIPH/PERTUSS(ACELL)/TETANUS VAC/PF 0.5 ML SYR (>=10YO) IM PRN (17:06)
[2020-07-13] MEDS ORDERED: DIBUCAINE 1% OINTMENT 28 GM TP PRN (17:06)
[2020-07-13] MEDS ORDERED: PROMETHAZINE HCL INJ 25 MG/1 ML VIAL IV PRN (17:06)
[2020-07-13] MEDS ORDERED: MEASLES,MUMPS&RUBELLA VACC/PF 0.5 ML VIAL SUBCUT PRN (17:06)
[2020-07-13] MEDS ORDERED: PROMETHAZINE HCL 25 MG TABLET PO PRN (17:06)
[2020-07-13] MEDS ORDERED: MAGNESIUM HYDROXIDE SUSP 30 ML UDCUP PO PRN (17:06)
[2020-07-13] MEDS ORDERED: ACETAMINOPHEN WITH CODEINE #3 TABLET PO PRN ×2 (17:06)
[2020-07-13] MEDS ORDERED: NA PHOS,M-B/NA PHOS,DI-BA (ADULT) 133 ML ENEMA PR PRN (17:06)
[2020-07-13] MEDS ORDERED: PROMETHAZINE HCL 25 MG SUPP.RECT PR PRN (17:06)
[2020-07-13] MEDS ORDERED: ACETAMINOPHEN 650 MG SUPP.RECT PR PRN (17:06)
[2020-07-13] MEDS ORDERED: GLYCERIN/WITCH HAZEL LEAF 1 EACH MED..WIPE TP PRN (17:06)
[2020-07-13] MEDS ORDERED: ACETAMINOPHEN 325 MG TABLET PO PRN (17:09)
--- NOTE | 2020-07-13 17:36 | Warning Signs in Babies ---
VOD Warning Signs Datetime Report Generated by [facility]: 07/13/2020 17:36 VOD#608 -Warning Signs in Babies: Needs to be viewed. (03/28/2020 01:07:Aniya Kolb RN)
[2020-07-13] MEDS ORDERED: IBUPROFEN 800 MG TABLET ONE (18:30)
[2020-07-13] MEDS: IBUPROFEN 800 MG TABLET PO SCH ×2 (18:31→22:29)
[2020-07-13] MEDS ORDERED: DOCUSATE SODIUM 100 MG CAPSULE ONE (18:32)
[2020-07-13] MEDS ORDERED: FERROUS SULFATE 325 MG TABLET PO ONE (18:32)
[2020-07-13] MEDS: DOCUSATE SODIUM 100 MG CAPSULE PO SCH (18:33)
[2020-07-13] MEDS: FERROUS SULFATE 325 MG TABLET PO SCH (18:33)
--- NOTE | 2020-07-13 18:47 | Birth Certificate Data ---
Cert Data Datetime Report Generated by CPN: 07/13/2020 18:47 CERTIFICATE DATA Delivery Provider: Nell Jacobs MD (03/28/2020 01:07:Cony Kelly RN) 47a. Care: Yes (03/28/2020 01:07:Aniya Kolb RN) 47b. Date of First Visit: 01/22/2020 00:00 (03/28/2020 01:07:Aniya Kolb RN) 47c. Date of Last Visit: 07/01/2020 00:00 (03/28/2020 01:07:Aniya Kolb RN) 47d. Number of Visits: 11 (03/28/2020 01:07:Aniya Kolb RN) 48a. Number of Prev Live Births: 1 (03/28/2020 01:07:Aniya Kolb RN) 48b. Now Livin (03/28/2020 01:07:Farheen Hernandez RN) 48c. Live Births Now : 0 (03/28/2020 01:07:QS system process) 48d. Date of Last Live : 08/17/2019 00:00 (03/28/2020 01:07:Aniya Kolb RN) 48e. Losses: 0 (03/28/2020 01:07:Aniya Kolb RN) RISK FACTORS IN THIS 49a. Diabetes: No (03/28/2020 01:07:Aniya Kolb RN) 49b. Hypertension: No (03/28/2020 01:07:Aniya Kolb RN) 49c. Previous Births: 1 (03/28/2020 01:07:Farheen Hernandez RN) 49d. Stillborns: No (03/28/2020 01:07:Aniya Kolb RN) 49d. IUGR: No (03/28/2020 01:07:Aniya Kolb RN) 49e. Infertility Treatment: No (03/28/2020 01:07:Aniya Kolb RN) 49f. Previous Cesareans: 0 (03/28/2020 01:07:Aniya Kolb RN) Mother's Height 50b. Height Inches: 63 (07/13/2020 08:21:QS system process) Mother's Weight 51a. Pre- Weight (lbs): 201 (03/28/2020 01:07:Aniya Kolb RN) 51b. Weight at Delivery (lbs): 200 (07/13/2020 08:21:QS system process) 52. Dt Last Normal Menses Began: 11/02/2019 00:00 (03/28/2020 01:07:Aniya Kolb RN) Infections Present/Treated 53a. Gonorrhea: No (03/28/2020 01:07:Aniya Kolb RN) Results this Hospital Visit : Negative (03/28/2020 01:07:Aniya Kolb RN) 53b. Syphilis: No (03/28/2020 01:07:Aniya Kolb RN) 53c. Chlamydia: No (03/28/2020 01:07:Aniya Kolb RN) Results this Hospital Visit: Negative (03/28/2020 01:07:Aniya Kolb RN) 53d. Hepatitis B: No (03/28/2020 01:07:Aniya Kolb RN) Results this Hospital Visit: Negative (03/28/2020 01:07:Aniya Kolb RN) 53e. Hepatitis C: Negative (03/28/2020 01:07:Aniya Kolb RN) 53h. Mother Tested for HBsAG: Yes (03/28/2020 01:07:Aniya Kolb RN) 53i. Date Tested: 02/22/2020 00:00 (03/28/2020 01:07:Aniya Kolb RN) 53j. Test Result: Negative (03/28/2020 01:07:Aniya Kolb RN) Obstetric Procedures 54a, b, c. Obstetric Procedures: Ultrasound; NST (03/28/2020 01:07:Aniya Kolb RN) Cigarette Smoking Cigarette Smoking: Never Smoker. [id number] (03/28/2020 01:07:Aniya Kolb RN) 55a. 3 Months Before Preg - Ci (03/28/2020 01:07:Aniya Kolb RN) 55a. Packs: 0 (03/28/2020 01:07:Aniya Kolb RN) 55b. 1st Trimester of Preg- Ci (03/28/2020 01:07:Aniya Kolb RN) 55b. Packs: 0 (03/28/2020 01:07:Aniya Kolb RN) 55c. 2nd Trimester of Preg- Ci (03/28/2020 01:07:Aniya Kolb RN) 55c. Packs: 0 (03/28/2020 01:07:Aniya Kolb RN) 55d. 3rd Trimester of Preg- Ci (03/28/2020 01:07:Aniya Kolb RN) 55d. Packs: 0 (03/28/2020 01:07:Aniya Kolb RN) Onset of Labor 56a. PROM >12 Hrs: 9.92 (03/28/2020 01:07:QS system process) 56b. Precipitous Labor <3 Hrs: 1 (03/28/2020 01:07:QS system process) 56c. Prolonged Labor > 20 Hrs: 1 (03/28/2020 01:07:QS system process) 57a. Induction of Labor: Augmentation (03/28/2020 01:07:Cony Kelly RN) 57c. Non-Vertex Presentation A: Vertex (03/28/2020 01:07:Oz Juarez RN) 57d. Steroids - Lung Mat: None (03/28/2020 01:07:Cony Kelly RN) 57d. Steroids - Lung Mat: Celestone 12mg IM - Dose 1 (07/13/2020 09:08:Aniya Kolb RN) 57d. Steroids - Lung Mat: Not Applicable (03/28/2020 01:07:Cony Kelly RN) 57e. Antibiotics During Labor: 07/13/2020 13:23 (03/28/2020 01:07:Cony Kelly RN) 57g. Moderate/Heavy Meconium: Clear (03/28/2020 01:07:Cony Kelly RN) 57h. Intolerance of Labor: N/A (03/28/2020 01:07:Oz Juarez RN) : N/A (03/28/2020 01:07:Oz Juarez RN) 57i. Epidural/Spinal Anesthesia: None (03/28/2020 01:07:Cony Kelly RN) Method of Delivery 58a. Forceps - Unsuccessful A: N/A (03/28/2020 01:07:Cony Kelly RN) 58b. Vacuum - Unsuccessful A: N/A (03/28/2020 01:07:Oz Juarez RN) 58c. Presentation at 58c. Presentation at - A : Vertex (03/28/2020 01:07:Oz Juarez RN) 58c. Presentation at - A : N/A (Annotations: Data stored by [facility] on behalf of user) (03/28/2020 01:07:Cony Kelly RN) 58c. Presentation at - A : Cephalic (07/13/2020 09:36:Aniya Kolb RN) Final Route and Method of Del 58d. Baby A Route/Delivery: Vaginal (03/28/2020 01:07:Oz Juarez RN) 58e. Trial of Labor Attempted: No (03/28/2020 01:07:Cony Kelly RN) 58e. Trial of Labor Attempted A: N/A (03/28/2020 01:07:Cony Kelly RN) 58e. Trial of Labor Attempted B: N/A (03/28/2020 01:07:Cony Kelly RN) Maternal Morbidity 59b. 3rd or 4th Degree Lacs: None (03/28/2020 01:07:Nell Jacobs, MD) Birthweight Baby A: 2605 (03/28/2020 01:07:Aniya Kolb RN) 60a. Pounds : 5 (03/28/2020 01:07:QS system process) 60b. Ounces: 12 (03/28/2020 01:07:QS system process) 61. GA at Delivery Baby A: 36.3 (03/28/2020 01:07:Cony Kelly RN) : Late - 34- 36.6 Weeks (03/28/2020 01:07:QS system process) 62a. 5 Minute Baby A: 8 (03/28/2020 01:07:QS system process)
--- NOTE | 2020-07-13 18:47 | Delivery Summary ---
Del Sum A-C Datetime Report Generated by CPN: 07/13/2020 18:47 DELIVERY PERSONNEL DELIVERY PERSONNEL: [id number] Delivery Doctor:: Nell Jacobs MD Labor and Delivery Nurse:: Aniya Kolb RNrepresentative phlebotomy services Nurse:: Cony Kelly RN Railroad Car Repairman/SILK SCREEN PRINTING RACKER: Tete Hightower CST Railroad Car Repairman/SILK SCREEN PRINTING RACKER: Alessia Mullins CST Additional Personnel: : Oz Juarez RN MATERNAL INFORMATION Delivery Anesthesia: None Medications After Delivery: Pitocin 30 Units in 500ml NS/D5W Estimated Blood Loss (ml): 200cc Delivery QBL: 150 Maternal Complications: Precipitous Labor (<3hrs); Premature Rupture of Membranes LABOR SUMMARY EDC: 08/07/2020 00:00 No. Babies in Womb: 1 Attempted: No Labor Anesthesia: None LABOR INFORMATION Reason for Induction: Not Applicable Reason for Induction- Other: Called to patients room as she is complete and +3. Patient pushed through one contraction and delivered over an intact perineum. After delivery of the head, the shoulders and rest of the body followed easily. Baby was vigorous after delivery and cord clamping was delayed approximately 30 seconds. After cord doubly clamped and cut, infant was taken to the warm by nursery staff for evaluation and management. Fundus firm. Mother and infant stable. Onset of Labor: 07/13/2020 15:22 Complete Dilatation: 07/13/2020 16:52 Oxytocin: Augmentation Group B Beta Strep: unknown Antibiotics # of Doses: 2 Antibiotics Time of Last Dose: 07/13/2020 13:23 Name of Antibiotic Given: PCN Steroids Given: None Reason Steroids Not Administered: Not Applicable MEMBRANES Membranes Rupture Method: Spontaneous Rupture of Membranes: 07/13/2020 07:00 Length of Rupture (hr): 9.92 Amniotic Fluid Color: Clear Amniotic Fluid Amount: Small Amniotic Fluid Odor: Normal STAGES OF LABOR Stage 1 hr: 1 Stage 1 min: 30 Stage 2 hr: 0 Stage 2 min: 3 Stage 3 hr: 0 Stage 3 min: 4 Total Time in Labor hr: 1 Total Time in Labor min: 37 VAGINAL DELIVERY Episiotomy: None Laceration #1: None Laceration Extension #1: N/A Laceration Repair: Not Applicable Sponge Count Correct: Yes Sharps Count Correct: Yes CSECTION DELIVERY Primary Indication: N/A Secondary Indication: N/A CSection Incidence: N/A Elective: N/A CSection Incision: N/A BABY A INFORMATION Infant Delivery Date/Time: 07/13/2020 16:55 Method of Delivery: Vaginal Nurse Controlled Delivery: No Born in Route : No : N/A Forceps: N/A Vacuum Extraction: N/A Shoulder Dystocia : No PRESENTATION/POSITION BABY A Presentation: Cephalic Cephalic Presentation: Vertex Vertex Position: Right Occipital Anterior Breech Presentation: N/A (Annotations: Data stored by [facility] on behalf of user) PLACENTA INFORMATION BABY A Placenta Delivery Time : 07/13/2020 16:59 Placenta Method of Delivery: Spontaneous Placenta Status: Delivered SCORES BABY A Heart Rate 1 min: >100 bpm Resp Effort 1 min: Good Cry Reflex Irritability 1 min: Cough or Sneeze or Pulls Away Muscle Tone 1 min: Active Motion Color 1 min: Blue/Pale Resuscitation Effort 1 min: Tactile Stimulation SCORE 1 MIN: 8 Heart Rate 5 min: >100 bpm Resp Effort 5 min: Slow, Irregular Reflex Irritability 5 min: Cough or Sneeze or Pulls Away Muscle Tone 5 min: Active Motion Color 5 min: Body [place], Extremities Blue Resuscitation Effort 5 min: Tactile Stimulation; Oxygen; PPV/NCPAP SCORE 5 MIN: 8 INFANT INFORMATION BABY A Gestational Age at Delivery: 36.3 Gestational Status: Late - 34- 36.6 Weeks Infant Outcome : Liveborn Infant Condition : Stable Sex: Male IDENTIFICATION BABY A Infant Verification Date/Time: 07/13/2020 17:56 ID Band Number: [id number] Mother's Name Verified: Yes RN Verifying Infant: Chaz, RN Additional Verifying Personnel: RASHAWN Gonzalez WEIGHT/LENGTH BABY A Infant Birthweight (gm): 2605 Weight (lb): 5 Weight (oz): 12 Length (in): 18.50 Infant Length (cm): 46.99 CORD INFORMATION BABY A No. Cord Vessels: 3 Nuchal Cord : N/A Cord Blood Taken: Yes-For Eval (Mom's Blood Type - or O+) Suction: Mouth ASSESSMENT BABY A Complications: Other Infant Complications- Other: Physical Findings at Delivery: Within Normal Limits Skin to Skin: No Infant Care By: J.Estevez, RN Transferred To: [facility] BABY B INFORMATION : N/A SIGNATURES Signature: with User ID: [email or web address] : with User ID: [email or web address]
--- NOTE | 2020-07-13 19:51 | Warning Signs in Babies ---
VOD Warning Signs Datetime Report Generated by [facility]: 07/13/2020 19:51 VOD#608 -Warning Signs in Babies: Needs to be viewed. (07/13/2020 19:20:Sharron Walker RN)
[2020-07-13] MEDS: FAMOTIDINE 20 MG TABLET PO SCH (22:29)
[2020-07-14] MEDS: IBUPROFEN 800 MG TABLET PO SCH ×3 (02:17→17:16)
[2020-07-14 07:50] LABS: HEMATOCRIT 27.7 % (36.0-47.0); HEMOGLOBIN 9.5 g/dL (12.0-15.5); MEAN CORPUSCULAR HEMOGLOBIN 27.2 pg (27.0-33.4); MEAN CORPUSCULAR HGB CONC 34.2 g/dL (32.0-36.0); MEAN CORPUSCULAR VOLUME 80 fl (80-97); PLATELET COUNT 229 10^3/uL (150-450); RED BLOOD COUNT 3.48 10^6/uL (3.72-5.28); RED CELL DISTRIBUTION WIDTH 14.8 % (11.5-14.0); WHITE BLOOD COUNT 16.4 10^3/uL (4.0-10.5)
--- NOTE | 2020-07-14 09:28 | PDOC PROGRESS REPORT ---
Subjective-OB Progress Note for:: 07/14/20 - PP Day #1, doing well, no complaints, UOB, voiding, O+,Rubella Immune, delivered at 36 weeks, baby in NICU. GBS unknown status, pt is , Hx +THC use Physical Exam (OB) Vital Signs: Temp Pulse Resp BP Pulse Ox 97.9 F 73 16 122/72 100 07/14/20 07:40 07/14/20 07:40 07/14/20 07:40 07/14/20 07:40 07/14/20 07:40 Intake & Output 07/13/20 07/14/20 07/15/20 06:59 06:59 06:59 Intake Total 1000 Balance 1000 Weight 90.6 kg - General General Appearance: Appears well, Alert In distress: None - PIH/Pre-Eclampsia DTR's: 2 + Clonus: Negative Headache: Absent Epigastric Pain: No Visual Changes: No - Maternal Morbidity 59. Maternal Morbidity (serious complications experinced by the mother associated with labor and delivery: None of the above - Episiotomy/Laceration Site Condition: N/A - Lochia Lochia Amount: Scant < 10 ml Lochia Color: Rubra/Red - Abdomen Description: Soft, Round Fundal Description: Firm, Midline Fundal Height: u/u - u/2 - Respiratory Respiratory Status: No respiratory distress - Abdominal Distension: No distension Tenderness: Nontender - Genitourinary Genitourinary Note: voiding - Extremities Upper extremity: Normal inspection Lower extremities: Normal inspection - Neurological Cognition: Normal Orientation: AAOx4 - Psychological Associated symptoms: Normal affect, Normal mood - Skin Skin Temperature: Warm Skin Moisture: Dry Objective-Diagnostic Laboratory: 07/14/20 07:05 07/13/20 07/13/20 07/13/20 09:31 09:31 09:31 WBC 9.7 RBC 3.51 L Hgb 9.6 L Hct 28.3 L MCV 81 MCH 27.3 MCHC 33.9 RDW 14.8 H Plt Count 217 Seg Neutrophils % 75.0 Urine Color YELLOW Urine Appearance SLIGHTLY-CLOUDY Urine pH 5.0 Ur Specific [place] 1.017 Urine Protein NEGATIVE Urine Glucose (UA) NEGATIVE Urine Ketones NEGATIVE Urine Blood NEGATIVE Urine Nitrite NEGATIVE Ur Leukocyte Esterase TRACE H Blood Type O POSITIVE Antibody Screen NEGATIVE 11/16/20 07:05 WBC 16.4 H RBC 3.48 L Hgb 9.5 L Hct 27.7 L MCV 80 MCH 27.2 MCHC 34.2 RDW 14.8 H Plt Count 229 Seg Neutrophils % Urine Color Urine Appearance Urine pH Ur Specific [place] Urine Protein Urine Glucose (UA) Urine Ketones Urine Blood Urine Nitrite Ur Leukocyte Esterase Blood Type Antibody Screen Assessment and Plan(PN) - Assessment and Plan (1) Synthetic cannabinoid abuse Is this a current diagnosis for this admission?: Yes (2) 35 weeks gestation of Is this a current diagnosis for this admission?: Yes (3) Anemia Qualifiers: Anemia type: iron deficiency Is this a current diagnosis for this admission?: Yes (4) Chorioamnionitis, delivered, current hospitalization Is this a current diagnosis for this admission?: Yes (5) PROM with onset of labor within 24 hours of rupture Qualifiers: PROM gestational age: -third trimester Is this a current diagnosis for this admission?: Yes Plan:: ambulation encouraged, Routine PP orders - Time Spent with Patient Time with patient: Less than 15 minutes Medications reviewed and adjusted accordingly: Yes - Disposition Anticipated Discharge Disposition: Home, Self Care Anticipated Discharge Timeframe: within 24 hours
[2020-07-14] MEDS: DOCUSATE SODIUM 100 MG CAPSULE PO SCH ×2 (09:46→17:16)
[2020-07-14] MEDS: FAMOTIDINE 20 MG TABLET PO SCH ×2 (09:46→21:20)
[2020-07-14] MEDS: PRENATAL VITAMIN W DHA CAPSULE PO SCH (09:46)
[2020-07-14] MEDS: SENNOSIDES/DOCUSATE 8.6-50 MG 1 EACH TABLET PO SCH (09:46)
[2020-07-14] MEDS: FERROUS SULFATE 325 MG TABLET PO SCH ×2 (09:46→17:16)
[2020-07-15] MEDS: IBUPROFEN 800 MG TABLET PO SCH ×2 (01:00→10:02)
[2020-07-15 07:44] VITALS: BP 131/65
[2020-07-15] MEDS: PRENATAL VITAMIN W DHA CAPSULE PO SCH (10:01)
[2020-07-15] MEDS: FERROUS SULFATE 325 MG TABLET PO SCH (10:02)
[2020-07-15] MEDS: DOCUSATE SODIUM 100 MG CAPSULE PO SCH (10:02)
[2020-07-15] MEDS: SENNOSIDES/DOCUSATE 8.6-50 MG 1 EACH TABLET PO SCH (10:02)
[2020-07-15] MEDS: FAMOTIDINE 20 MG TABLET PO SCH (10:02)
--- NOTE | 2020-07-15 10:28 | PDOC DISCHARGE SUMMARY ---
Impression - Admit/DC Date/PCP Admission Date/Primary Care Provider: 07/13/20 08:47 KIRSTIN VALERIO MD Discharge Date: 07/15/20 - Discharge Diagnosis (1) delivery Is this a current diagnosis for this admission?: Yes - Additional Information Discharge Diet: Regular Discharge Activity: Balance Activity w/Rest, Pelvic Rest Referrals: KIRSTIN VALERIO MD [Primary Care Provider] - Prescriptions: Ibuprofen [Motrin 800 mg Tablet] 800 mg PO Q8HP PRN #60 tablet PRN Reason: Home Medications: Vit/Dha [ Multi + Dha Capsule] 1 cap PO DAILY #30 capsule 08/19/19 Ibuprofen [Motrin 800 mg Tablet] 800 mg PO Q8HP PRN #60 tablet 07/15/20 Hospital Course 59. Maternal Morbidity (serious complications experinced by the mother associated with labor and delivery: None of the above Results Laboratory Results: WBC 16.4 10^3/uL (4.0-10.5) H 07/14/20 07:05 RBC 3.48 10^6/uL (3.72-5.28) L 07/14/20 07:05 Hgb 9.5 g/dL (12.0-15.5) L 07/14/20 07:05 Hct 27.7 % (36.0-47.0) L 07/14/20 07:05 MCV 80 fl (80-97) 07/14/20 07:05 MCH 27.2 pg (27.0-33.4) 07/14/20 07:05 MCHC 34.2 g/dL (32.0-36.0) 07/14/20 07:05 RDW 14.8 % (11.5-14.0) H 07/14/20 07:05 Plt Count 229 10^3/uL (150-450) 07/14/20 07:05 Lymph % (Auto) 19.3 % (13-45) 07/13/20 09:31 [place] % (Auto) 5.2 % (3-13) 07/13/20 09:31 Eos % (Auto) 0.2 % (0-6) 07/13/20 09:31 Baso % (Auto) 0.3 % (0-2) 07/13/20 09:31 Absolute Neuts (auto) 7.3 10^3/uL (1.7-8.2) 07/13/20 09:31 Absolute Lymphs (auto) 1.9 10^3/uL (0.5-4.7) 07/13/20 09:31 Absolute Monos (auto) 0.5 10^3/uL (0.1-1.4) 07/13/20 09:31 Absolute Eos (auto) 0.0 10^3/uL (0.0-0.6) 07/13/20 09:31 Absolute Basos (auto) 0.0 10^3/uL (0.0-0.2) 07/13/20 09:31 Seg Neutrophils % 75.0 % (42-78) 07/13/20 09:31 Urine Color YELLOW 07/13/20 09:31 Urine Appearance SLIGHTLY-CLOUDY 07/13/20 09:31 Urine pH 5.0 (5.0-9.0) 07/13/20 09:31 Ur Specific [place] 1.017 07/13/20 09:31 Urine Protein NEGATIVE mg/dL (NEGATIVE) 07/13/20 09:31 Urine Glucose (UA) NEGATIVE mg/dL (NEGATIVE) 07/13/20 09:31 Urine Ketones NEGATIVE mg/dL (NEGATIVE) 07/13/20 09:31 Urine Blood NEGATIVE (NEGATIVE) 07/13/20 09:31 Urine Nitrite NEGATIVE (NEGATIVE) 07/13/20 09:31 Urine Bilirubin NEGATIVE (NEGATIVE) 07/13/20 09:31 Urine Urobilinogen 4.0 mg/dL (<2.0) H 07/13/20 09:31 Ur Leukocyte Esterase TRACE (NEGATIVE) H 07/13/20 09:31 Urine Ascorbic Acid NEGATIVE (NEGATIVE) 07/13/20 09:31 Membranes Rupture POSITIVE (NEGATIVE) H 07/13/20 08:15 Bacteria (Wet Prep) 3+ BACTERIA SEEN 07/13/20 08:15 Trichomonas (Wet Prep) NO TRICHOMONAS SEEN 07/13/20 08:15 Vaginal WBC 1+ WBCS SEEN 07/13/20 08:15 Vaginal RBC FEW RBCS SEEN 07/13/20 08:15 Vaginal Yeast NO YEAST SEEN 07/13/20 08:15 Urine Opiates Screen NEGATIVE 07/13/20 09:00 Urine Methadone Screen NEGATIVE 07/13/20 09:00 Ur Barbiturates Screen NEGATIVE 07/13/20 09:00 Ur Phencyclidine Scrn NEGATIVE 07/13/20 09:00 Ur Amphetamines Screen NEGATIVE 07/13/20 09:00 U Benzodiazepines Scrn NEGATIVE 07/13/20 09:00 Urine Cocaine Screen NEGATIVE 07/13/20 09:00 U Marijuana (THC) Screen NEGATIVE 07/13/20 09:00 RPR NONREACTIVE (NONREACTIVE) 07/13/20 09:31 Chlamydia DNA (PCR) NOT DETECTED (NOT DETECT) 07/13/20 09:00 N.gonorrhoeae DNA (PCR) NOT DETECTED (NOT DETECT) 07/13/20 09:00 Blood Type O POSITIVE 07/13/20 09:31 Antibody Screen NEGATIVE 07/13/20 09:31 Plan Plan of Treatment: follow up in 4 weeks at [facility] for post check
== END 2020-07-15 13:11 | disposition home or self-care (01) | DRG 805 ==
LOC: LC 07:58 → LR 08:47 → 2S 20:08
PROVIDERS: ADMIT Obstetrics & Gynecology; ATTEND Obstetrics & Gynecology
PROC: 10E0XZZ Delivery of Products of Conception, External Approach (ICD-10-PCS; principal; 2020-07-13)
DX: O42.013 Preterm premature rupture of membranes, onset of labor within 24 hours of rupture, third trimester (principal); O41.1230 Chorioamnionitis, third trimester, not applicable or unspecified; Z37.0 Single live birth; O99.324 Drug use complicating childbirth; Z20.828 Contact with and (suspected) exposure to other viral communicable diseases; F12.90 Cannabis use, unspecified, uncomplicated; O99.013 Anemia complicating pregnancy, third trimester; D50.9 Iron deficiency anemia, unspecified; O62.3 Precipitate labor; Z3A.36 36 weeks gestation of pregnancy
CPT/HCPCS: 36415; 80307; 81005; 84112; 85025; 85027; 86592; 86850; 86900; 86901; 87077; 87081; 87210; 87491; 87591; J0702; J2540; J2590; J3490; J7060